=== PATIENT | male | born 1940 | race Caucasian/White ===

== ENCOUNTER 2017-05-25 01:49 | Inpatient (IN) | payer OTHER ==
[~2017-05-25] VITALS: Ht 175.3 cm; Wt 88.5 kg
--- NOTE | 2017-05-25 05:20 | NUR ---
GPS RN ADMITTED NOTES ADMITTED THIS 76Y/O MALE FROM ,PT CAME FROM [facility] , PT. CAME TO THE UNIT VIA [facility]URANE[facility] ACCOMPANIED EMT STAFF PT. IS ON 5150 HOLD , PER HOLD PT. COMBATIVE , AGITAED , THREATING TO THE YELLING AND SCREAMING, PER PT. PT. WAS CURSING EVERY ONE IN THE HOUSE AND THREATING TO KILL STRANGERS AND NEIGHBOURS OUT SIDE OF THE HOME ,UPON FACE TO FACE ASSESSMENT PT. A/O X2 , AMBULATORY COOPERATIVE AT THIS TIME , MENTAL HX OF SCHIZOAFFECTIVE DISORDERS .MEDICAL HX OF HTN DM, SKIN/ BODY ASSESSMENT DONE , SKIN IS INTACT , MRSA SCREENING DONE ,BOTH MD AWARE OF NEW ADMISSION NEW ORDERS RECEIVED AND CARRIED OUT, REORIENT TO UNIT POLICES AND CONTRABAND CHECKS , WILL CONTINUE TO MONITOR FOR SAFETY AND BEHAVIOR .
[2017-05-25] MEDS ORDERED: MAG HYDROX/AL HYDROX/SIMETH 30 ML UDC PO PRN (05:30)
[2017-05-25] MEDS ORDERED: MAGNESIUM HYDROXIDE 30 ML UDC PO PRN (05:30)
[2017-05-25] MEDS ORDERED: TEMAZEPAM 7.5 MG CAPSULE PO PRN (05:30)
[2017-05-25] MEDS ORDERED: LORAZEPAM 0.5 MG TABLET PO PRN (05:30)
[2017-05-25] MEDS ORDERED: ACETAMINOPHEN 325 MG TABLET PO PRN (05:30)
[2017-05-25 06:32] VITALS: BP 159/82
--- NOTE | 2017-05-25 06:56 | NUR ---
INFORMED FAMILY MEMBER SPOKE TO DANIKA () REGARDING MEDICATIONS. PER HER DAUGHTER WILL BRING THE MEDICATION TOMORROW. WILL ENDORSE IT TO NEXT SHIFT NURSE FOR JASMYNE.
[2017-05-25 08:12] LABS: CHOLESTEROL 266 mg/dL (<200); HDL CHOLESTEROL 45 mg/dL (40-60); LDL 201 mg/dL (0-99); TRIGLYCERIDES 68 mg/dL (30-150)
[2017-05-25 08:43] VITALS: BP 140/71
--- NOTE | 2017-05-25 09:24 | NUR ---
ADMINISTERED ATIVAN 0.5 MG PO PRN FOR ANXIETY, V/S TAKEN QA=649/71, P-77, CONTINUED MONITORING.
[2017-05-25] MEDS: BLOOD SUGAR DIAGNOSTIC 1 EACH STRIP IN SCH ×3 (11:59→21:55)
[2017-05-25] MEDS ORDERED: ASPI81TA2 PO (13:34)
[2017-05-25] MEDS ORDERED: ESCI10TA PO (13:34)
[2017-05-25] MEDS ORDERED: METF500T4 PO (13:34)
[2017-05-25] MEDS ORDERED: AMLO1CAP10 PO (13:34)
[2017-05-25] MEDS ORDERED: ATOR40TA PO (13:34)
[2017-05-25] MEDS ORDERED: RANI300C PO (13:34)
[2017-05-25] MEDS: SERTRALINE HCL 25 MG TABLET PO SCH (15:33)
[2017-05-25 15:54] VITALS: BP 164/80
[2017-05-25] MEDS: METFORMIN 500 MG TABLET PO SCH (16:30)
[2017-05-25 20:10] VITALS: BP 136/85
[2017-05-25] MEDS: ATORVASTATIN 40 MG TABLET PO SCH (21:23)
[2017-05-25] MEDS ORDERED: QUETIAPINE FUMARATE 25 MG TABLET PO SCH (22:00)
[2017-05-26 08:00] VITALS: BP 152/95
[2017-05-26] MEDS: BLOOD SUGAR DIAGNOSTIC 1 EACH STRIP IN SCH ×4 (08:01→21:59)
[2017-05-26] MEDS: METFORMIN 500 MG TABLET PO SCH ×2 (08:01→18:24)
[2017-05-26] MEDS: SERTRALINE HCL 25 MG TABLET PO SCH (08:01)
[2017-05-26] MEDS: ASPIRIN 81 MG TAB.CHEW PO SCH (08:01)
[2017-05-26] MEDS: PANTOPRAZOLE 40 MG TABLET.DR PO SCH (08:02)
[2017-05-26] MEDS: BENAZEPRIL HCL 20 MG TABLET PO SCH (08:02)
[2017-05-26 09:00] LABS: BASOPHILS % (AUTO) 0.4 % (0.0-2.0); EOSINOPHILS # (AUTO) 0.1 /CMM (0.0-0.7); EOSINOPHILS % (AUTO) 0.8 % (0.0-6.0); HEMATOCRIT 41 % (39-51); HEMOGLOBIN 13.4 g/dL (13.5-17.5); LYMPHOCYTES # (AUTO) 2.4 /CMM (0.8-4.8); LYMPHOCYTES % (AUTO) 34.9 % (20.0-44.0); MEAN CORPUSCULAR HEMOGLOBIN 29 PG (26.0-33.0); MEAN CORPUSCULAR HGB CONC 33 g/dl (31.0-36.0); MEAN CORPUSCULAR VOLUME 89 fL (80-96); MONOCYTES # (AUTO) 0.5 /CMM (0.1-1.30); NEUTROPHILS # (AUTO) 3.9 /CMM (1.8-8.9); NEUTROPHILS % (AUTO) 56.9 % (43.0-81.0); PLATELET COUNT (AUTO) 182 /CMM (150-450); RDW COEFFICIENT OF VARIATION 13.3 (11.5-15.0); RED BLOOD CELL COUNT(AUTO) 4.61 MIL/uL (4.5-6.0); WHITE BLOOD COUNT (AUTO) 6.9 K/uL (4.3-11.0)
[2017-05-26 09:20] LABS: ALANINE AMINOTRANSFERASE 26 U/L (12-78); ALBUMIN 3.5 g/dL (3.4-5.0); ALKALINE PHOSPHATASE 74 U/L (46-116); ASPARTATE AMINOTRANSFERASE 19 U/L (15-37); CALCIUM, SERUM 8.9 mg/dL (8.5-10.1); CARBON DIOXIDE 29 mmol/L (21-32); CHLORIDE 104 mmol/L (98-107); CREATININE 1.1 mg/dL (0.6-1.3); GLUCOSE 181 mg/dL (74-106); POTASSIUM 3.7 mmol/L (3.5-5.1); SODIUM SERUM 139 mmol/L (136-145); TOTAL PROTEIN, SERUM 7.8 g/dL (6.4-8.2); UREA NITROGEN, BLOOD 10 mg/dL (7-18)
[2017-05-26 16:00] VITALS: BP 142/72
--- NOTE | 2017-05-26 16:14 | NUR ---
Initial discharge plan: Pt. lives at home with his , Katelynn [phone] at Home [address] [facility] [address]- [phone] and would like to return. DESIRE will follow up with Katelynn and will speak with MD to arrange for safe and proper discharge.
--- NOTE | 2017-05-26 19:30 | NUR ---
GPS RN NOTE, RECEIVED PATIENT AWAKE AND IN BED, NO S/S OR COMPLAINTS OF PAIN AT THIS TIME. PATIENT IS DISPLAYING NO S/S OF APPARENT DISTRESS AT THIS TIME. PATIENT BREATHING IS UNLABORED WITH EQUAL RISE AND FALL OF THE CHEST. PATIENT IS ALERT AND ORIENTED X 2 ON ROOM AIR WITH A SPO2 96%. PATIENT COMPLAINT WITH MEDICATION, ANXIOUS, COOPERATIVE, CALM, AND NEEDS REORIENTATION. PATIENT DENIES SUICIDE AND HOMICIDAL IDEATIONS AT THIS TIME. PATIENT ASSISTED WITH TURNING AND REPOSITIONING Q2HR AND PRN FOR COMFORT AND CIRCULATION. PATIENT HAS NO NEEDS AT THIS TIME. PATIENT EDUCATED ON THE USE OF THE CALL [place]. PATIENT BED SIDE RAILS UP X2 FOR SAFETY, BED IS LOCKED AND LOW WILL CONTINUE TO MONITOR AND MAINTAIN SAFETY.
[2017-05-26 20:18] VITALS: BP 160/93
[2017-05-26] MEDS ORDERED: CLONIDINE HCL 0.1 MG TABLET PO PRN (21:00)
--- NOTE | 2017-05-26 21:00 | NUR ---
GPS RN NOTE, PATIENT VITAL SIGNS ARE FOLLOWS TEMP 98.1, B/P 161/ 95, PULSE 85, RESPIRATION 19, SPO2 % 97. JASE STANLEY ON THE FLOOR. INFORMED JASE STANLEY OF MY FINDINGS. JASE STANLEY ORDERED CATAPRES 0.1MG PO Q6HR PRN. ALL ORDERS NOTED AND CARRIED OUT. WILL CONTINUE TO MONITOR THIS PATIENT.
[2017-05-26] MEDS ORDERED: CLONIDINE HCL 0.1 MG TABLET ONE (21:08)
[2017-05-26] MEDS: ATORVASTATIN 40 MG TABLET PO SCH (21:50)
--- NOTE | 2017-05-26 21:50 | NUR ---
GPS RN NOTE, PATIENT VITAL SIGNS ARE FOLLOWS TEMP 98.1, B/P 161/ 95, PULSE 85, RESPIRATION 19, SPO2 % 97. GAVE CATAPRES 0.1MG PO Q6HR PRN ORDERED. WILL CONTINUE TO MONITOR THIS PATIENT.
--- NOTE | 2017-05-26 21:59 | NUR ---
GPS RN NOTE, PERFORMED ACCU CHECK ON PATIENT WITH A BLOOD SUGAR RESULT OF 113. GAVE NO UNITS OF REGULAR INSULIN PER SLIDING SCALE. WILL CONTINUE TO MONITOR THIS PATIENT.
[2017-05-26] MEDS ORDERED: QUETIAPINE FUMARATE 25 MG TABLET PO SCH (22:00)
[2017-05-27] MEDS: METFORMIN 500 MG TABLET PO SCH ×2 (07:48→17:01)
[2017-05-27] MEDS: BLOOD SUGAR DIAGNOSTIC 1 EACH STRIP IN SCH ×4 (07:48→21:15)
[2017-05-27] MEDS: BENAZEPRIL HCL 20 MG TABLET PO SCH (07:48)
[2017-05-27] MEDS: PANTOPRAZOLE 40 MG TABLET.DR PO SCH (07:48)
[2017-05-27] MEDS: ASPIRIN 81 MG TAB.CHEW PO SCH (07:48)
[2017-05-27 08:00] VITALS: BP 150/80
[2017-05-27] MEDS ORDERED: QUETIAPINE FUMARATE 25 MG TABLET PO SCH (08:00)
[2017-05-27] MEDS: HALOPERIDOL 1 MG TABLET PO SCH ×2 (12:20→17:01)
[2017-05-27] MEDS: QUETIAPINE FUMARATE 25 MG TABLET PO SCH ×2 (12:21→21:36)
--- NOTE | 2017-05-27 12:33 | NUR ---
DESIRE spoke with , Katelynn [phone] and she confirms that pt. can return home when stabilized.
--- NOTE | 2017-05-27 13:44 | NUR ---
UR update: DESIRE left a voicemail for Malindaaugustus Malone [phone] from [email or web address] case management with clinical information. Will follow up.
--- NOTE | 2017-05-27 15:06 | NUR ---
UR update: faxed a tr, med list, H&Ps to Qasim Kaba [phone] phone [phone]. Will follow up
[2017-05-27 16:00] VITALS: BP 105/63
[2017-05-27 20:47] VITALS: BP 121/61
[2017-05-27] MEDS: DIVALPROEX SODIUM 125 MG CAP.SPRINK PO SCH (21:15)
--- NOTE | 2017-05-27 21:16 | NUR ---
GPS/RN NOTE: ACCUCHECK 100 MG/DL, NO INSULIN DUE AT THIS TIME, HS SNACKS OFFERED.
[2017-05-27] MEDS: ATORVASTATIN 40 MG TABLET PO SCH (21:36)
--- NOTE | 2017-05-28 07:30 | NUR ---
received pt. in am-alert and oriented x2-3.cooperative.
[2017-05-28 08:00] VITALS: BP 123/63
[2017-05-28] MEDS: DIVALPROEX SODIUM 125 MG CAP.SPRINK PO SCH ×2 (09:48→21:18)
[2017-05-28] MEDS: BLOOD SUGAR DIAGNOSTIC 1 EACH STRIP IN SCH ×4 (09:48→21:18)
[2017-05-28] MEDS: BENAZEPRIL HCL 20 MG TABLET PO SCH (09:48)
[2017-05-28] MEDS: ASPIRIN 81 MG TAB.CHEW PO SCH (09:49)
[2017-05-28] MEDS: PANTOPRAZOLE 40 MG TABLET.DR PO SCH (09:49)
[2017-05-28] MEDS: QUETIAPINE FUMARATE 25 MG TABLET PO SCH ×3 (09:49→22:43)
[2017-05-28] MEDS: METFORMIN 500 MG TABLET PO SCH ×2 (09:50→18:46)
[2017-05-28] MEDS: HALOPERIDOL 1 MG TABLET PO SCH ×2 (09:50→18:46)
[2017-05-28] MEDS ORDERED: HALOPERIDOL DECANOATE IM 100 MG/ML AMPUL IM ONE (12:30)
--- NOTE | 2017-05-28 15:00 | NUR ---
dr. au in orders given,ekg done and seen by dr. au.
[2017-05-28 16:35] VITALS: BP 101/57
--- NOTE | 2017-05-28 17:30 | NUR ---
in to visit.
--- NOTE | 2017-05-28 18:00 | NUR ---
pt. started on haldol decanoate
[2017-05-28 20:00] VITALS: BP 115/68
[2017-05-28 20:06] VITALS: BP 118/68
[2017-05-28] MEDS: ATORVASTATIN 40 MG TABLET PO SCH (21:18)
[2017-05-29] MEDS: BLOOD SUGAR DIAGNOSTIC 1 EACH STRIP IN SCH ×4 (07:39→22:05)
[2017-05-29 08:00] VITALS: BP_SYST 115; BP_SYST 130; BP_DIAS 70; BP_DIAS 77
[2017-05-29] MEDS: QUETIAPINE FUMARATE 25 MG TABLET PO SCH ×3 (08:23→21:14)
[2017-05-29] MEDS: ASPIRIN 81 MG TAB.CHEW PO SCH (08:23)
[2017-05-29] MEDS: BENAZEPRIL HCL 20 MG TABLET PO SCH (08:23)
[2017-05-29] MEDS: HALOPERIDOL 1 MG TABLET PO SCH ×2 (08:23→16:31)
[2017-05-29] MEDS: METFORMIN 500 MG TABLET PO SCH ×2 (08:23→16:31)
[2017-05-29] MEDS: PANTOPRAZOLE 40 MG TABLET.DR PO SCH (08:23)
[2017-05-29] MEDS: DIVALPROEX SODIUM 125 MG CAP.SPRINK PO SCH ×2 (08:24→21:15)
[2017-05-29 08:32] VITALS: BP 115/77
--- NOTE | 2017-05-29 15:08 | NUR ---
UR update: DESIRE faxed a updated clinicals to DISHA Kaba [phone] phone [phone]. Will follow up
[2017-05-29 16:39] VITALS: BP 146/81
[2017-05-29 20:00] VITALS: BP 144/72
[2017-05-29] MEDS: ATORVASTATIN 40 MG TABLET PO SCH (21:14)
[2017-05-30] MEDS: BLOOD SUGAR DIAGNOSTIC 1 EACH STRIP IN SCH ×4 (07:51→21:47)
[2017-05-30 08:00] VITALS: BP 132/60
[2017-05-30] MEDS: METFORMIN 500 MG TABLET PO SCH ×2 (08:24→16:36)
[2017-05-30] MEDS: PANTOPRAZOLE 40 MG TABLET.DR PO SCH (08:25)
[2017-05-30] MEDS: QUETIAPINE FUMARATE 25 MG TABLET PO SCH ×3 (08:25→21:40)
[2017-05-30] MEDS: BENAZEPRIL HCL 20 MG TABLET PO SCH (08:25)
[2017-05-30] MEDS: HALOPERIDOL 1 MG TABLET PO SCH ×2 (08:25→16:36)
[2017-05-30] MEDS: ASPIRIN 81 MG TAB.CHEW PO SCH (08:25)
[2017-05-30] MEDS: DIVALPROEX SODIUM 125 MG CAP.SPRINK PO SCH ×2 (08:25→21:40)
--- NOTE | 2017-05-30 14:14 | NUR ---
Per psychiatrist, patient is scheduled to be discharged on Friday. DESIRE spoke with patient's Katelynn [phone], and she stated that she can fern picker the patient at 2pm Friday June 02, 2017. She had some questions about a form assigned DESIRE Casillas provided to her and DESIRE will follow up with her Friday morning.
--- NOTE | 2017-05-30 15:49 | NUR ---
UR Update: Spoke to DISHA Bostonily from [facility] (phone [phone]) who stated that as of now, no current clinicals to fax. Wendy stated she checked with her dam tender assistant clinical director Kirby who stated that assigned SW can follow up on Friday06/02/2017 with him (ext [phone]), as Sendy will be back on Sunday June 04, 2017. DESIRE informed Wendy that patient was being dicharged on Friday. She stated that patient can be referred to partial hospitalization program ([place]) and stated that if he does not agree, they will provide follow up appointments for the patient. Assigned SW will follow up
[2017-05-30 16:00] VITALS: BP 105/65
--- NOTE | 2017-05-30 18:54 | NUR ---
Called and clarified about the Haldol Dec. order for tomorrow and said to give Haldol Dec. tomorrow.
[2017-05-30 20:00] VITALS: BP 117/64
[2017-05-30] MEDS: ATORVASTATIN 40 MG TABLET PO SCH (21:40)
--- NOTE | 2017-05-30 21:47 | NUR ---
GPS RN NOTES PT. REFUSED ACCU CHECK AT 22:00 , ENCOURAGED FOR ACCU CHECK STILL REFUSED .
--- NOTE | 2017-05-31 06:33 | NUR ---
RN GPS NOTE PT .REMAINED IN STABLE CONDITION RESTING IN HIS BED ,NO ACUTE DISTRESS NOTED ATTENDED ALL NEEDS AND ANTICIPATED , DENIES SI/ HI AT THIS TIME, ENDORSE TO NEXT SHIFT NURSE. WILL ENDORSE TO NEXT SHIFT FOR CONTINUITY OF CARE
[2017-05-31 08:00] VITALS: BP 133/70
[2017-05-31] MEDS: BENAZEPRIL HCL 20 MG TABLET PO SCH (08:44)
[2017-05-31] MEDS: METFORMIN 500 MG TABLET PO SCH ×2 (08:44→17:21)
[2017-05-31] MEDS: DIVALPROEX SODIUM 125 MG CAP.SPRINK PO SCH ×2 (08:44→21:46)
[2017-05-31] MEDS: QUETIAPINE FUMARATE 25 MG TABLET PO SCH ×3 (08:44→21:46)
[2017-05-31] MEDS: PANTOPRAZOLE 40 MG TABLET.DR PO SCH (08:44)
[2017-05-31] MEDS: BLOOD SUGAR DIAGNOSTIC 1 EACH STRIP IN SCH (08:44)
[2017-05-31] MEDS: ASPIRIN 81 MG TAB.CHEW PO SCH (08:44)
[2017-05-31] MEDS ORDERED: HALOPERIDOL DECANOATE IM 100 MG/ML AMPUL IM ONE (09:00)
[2017-05-31] MEDS: HALOPERIDOL 1 MG TABLET PO SCH ×2 (09:47→17:21)
--- NOTE | 2017-05-31 15:30 | NUR ---
GPS RN NOTE: PER DR YOGESH WEIR ACCU CHECK ORDER PLACED AND CARED OUT CONTINUE MONITORING FOR PT CONDITION
[2017-05-31 16:00] VITALS: BP 119/61
[2017-05-31 20:00] VITALS: BP 129/67
--- NOTE | 2017-05-31 20:00 | NUR ---
RN INITIAL NOTES: RECEIVED PT IN BED, AWAKE, A/O X2-3 HYPERVERBAL, DENIES ANY PLAN OF HURTING HIMSELF, LESS ANGRY, COOPERATIVE, COMPLIANT WITH MEDS, PT IS AMBULATORY, SKIN IS INTACT, DENIES ANY PAIN OR DISCOMFORT AT THIS TIME, WILL CONTINUE TO MONITOR FOR SAFETY [id number] AND FOR ANY CHANGES IN BEHAVIOR
--- NOTE | 2017-05-31 20:10 | NUR ---
RN NOTES: PER DAY RN REPORT, NO MORE ACCU CHECK PER MD, [id number] WNL
[2017-05-31] MEDS: ATORVASTATIN 40 MG TABLET PO SCH (21:46)
--- NOTE | 2017-06-01 06:39 | NUR ---
rn closing notes: pt in bed, awake, remains a/o x3, med complaint,ambulatory and cooperative,respiration even and unlabored, denies any pain or discomfort at this time, no untoward event happened throughout the shift, vs remains stable, needs attended, will endorse to day rn for juan.
[2017-06-01 08:00] VITALS: BP 130/70
[2017-06-01] MEDS: HALOPERIDOL 1 MG TABLET PO SCH ×2 (08:58→16:37)
[2017-06-01] MEDS: DIVALPROEX SODIUM 125 MG CAP.SPRINK PO SCH ×2 (08:58→21:17)
[2017-06-01] MEDS: METFORMIN 500 MG TABLET PO SCH ×2 (08:58→16:37)
[2017-06-01] MEDS: ASPIRIN 81 MG TAB.CHEW PO SCH (08:58)
[2017-06-01] MEDS: QUETIAPINE FUMARATE 25 MG TABLET PO SCH ×3 (08:58→21:17)
[2017-06-01] MEDS: PANTOPRAZOLE 40 MG TABLET.DR PO SCH (08:58)
[2017-06-01] MEDS: BENAZEPRIL HCL 20 MG TABLET PO SCH (08:59)
[2017-06-01 16:00] VITALS: BP 109/57
[2017-06-01 20:12] VITALS: BP 156/71
[2017-06-01] MEDS: ATORVASTATIN 40 MG TABLET PO SCH (21:17)
[2017-06-02 08:00] VITALS: BP 133/71
[2017-06-02] MEDS: DIVALPROEX SODIUM 125 MG CAP.SPRINK PO SCH (09:27)
[2017-06-02] MEDS: PANTOPRAZOLE 40 MG TABLET.DR PO SCH (09:27)
[2017-06-02] MEDS: QUETIAPINE FUMARATE 25 MG TABLET PO SCH ×2 (09:27→12:22)
[2017-06-02 09:28] VITALS: BP 133/71
[2017-06-02] MEDS: HALOPERIDOL 1 MG TABLET PO SCH (09:28)
[2017-06-02] MEDS: BENAZEPRIL HCL 20 MG TABLET PO SCH (09:28)
[2017-06-02] MEDS: METFORMIN 500 MG TABLET PO SCH (09:28)
[2017-06-02] MEDS: ASPIRIN 81 MG TAB.CHEW PO SCH (09:30)
--- NOTE | 2017-06-02 11:56 | NUR ---
Wendy from [facility] (phone [phone]) asked to check with the patient if he agrees to attend the partial hospitalization program of [facility] [phone], but pt. refused. notified Wendy and Wendy will arrange after care with a psychiatrist. Will follow up.
--- NOTE | 2017-06-02 12:43 | NUR ---
Discharge note: Pt. will discharge back home with his , Katelynn [phone] [facility]. [facility] [address]- [phone]. Pts will pick up operator the patient. Pt. will follow up with psychiatrist Tim Johnston on June 07 at 2:45 PM at [address] [facility] [address] in [facility] [id number] . DESIRE notified the office that pt. is on Haldol injections and his next injection should be on 07/01/17. DESIRE faxed the information to [phone]. Pt's discharge paperwork (continuing care form) has been signed and discharge instructions will be provided to the patient and his prior to discharge. Pt. is alert and oriented, denies suicidal/homicidal ideations and hallucinations, and is calm and cooperative.
--- NOTE | 2017-06-02 15:00 | NUR ---
GPS/RN PATIENT CLEARED FOR DISCHARGE HOME TO [address]. [facility] [address], [address] DR PHOENIX AND DR ZUÑIGA. PRESCRIPTIONS AND D/C PACKET EXPLAINED TO PATIENT AND DANIKA, VERBALIZED UNDERSTANDING. ALL D/C PAPERWORK SIGNED, BELONGINGS RETURNED AND SIGNED FOR, PATIENT IS CALM, COOPERATIVE, DENIES SI/HI/AH AT TIME OF DISCHARGE, PSYCHIATRIC TREATMENT PLANS MET. PATIENT TO FOLLOW UP WITH DR JADE CROCKETT ([phone]), [address] [facility] [address], [facility] [address]. PATIENT LEFT UNIT WITH DANIKA ([phone]) AND POINT OF CARE TECHNICIAN AT SIDE, NO DISTRESS NOTED.
--- NOTE | 2017-06-03 09:55 | NUR ---
UR update: faxed discharge information to Qasim Kaba [phone] phone [phone]. Will follow up
== END 2017-06-02 15:00 | disposition home or self-care (01) | DRG 885 ==
LOC: GPS 04:53
PROVIDERS: ADMIT Psychiatry & Neurology Psychosomatic Medicine; ATTEND Nurse Practitioner Acute Care
DX: F25.0 Schizoaffective disorder, bipolar type (principal); F02.80 Dementia in other diseases classified elsewhere, unspecified severity, without behavioral disturbance, psychotic disturbance, mood disturbance, and anxiety; F23 Brief psychotic disorder; I10 Essential (primary) hypertension; E11.9 Type 2 diabetes mellitus without complications; G30.9 Alzheimer's disease, unspecified
CPT/HCPCS: 36415; 80053-TC; 80061-TC; 82962-TC; 85025-TC; 87081-TC; J1631; Z7610